=== PATIENT | female | born 2000 | race Caucasian/White ===

== ENCOUNTER 2022-02-15 19:48 | Emergency (ER) | payer OTHER ==
[~2022-02-15] VITALS: Ht 177.8 cm; Wt 136.4 kg
[2022-02-15 19:53] VITALS: BP 153/98
[2022-02-15 20:01] VITALS: BP 145/92
[2022-02-15] MEDS ORDERED: VIIBRYD40 MG PO (20:03)
[2022-02-15 20:16] VITALS: BP 143/84
[2022-02-15 20:25] VITALS: BP 143/84
== END 2022-02-15 20:35 | disposition home or self-care (01) | DRG 605 ==
LOC: ED 19:48
DX: S60.552A Superficial foreign body of left hand, initial encounter (principal); W45.8XXA Other foreign body or object entering through skin, initial encounter